=== PATIENT | female | born 1955 | race Caucasian/White ===

== ENCOUNTER → 2017-03-31 | Outpatient (CLI) | payer OTHER ==
[~2017-03-31] MED LIST: ASPI-557 PO; ESCI20TA22 PO; MULT-933 PO
== END ==
LOC: WC.BC 12:32
DX: Z12.31 Encounter for screening mammogram for malignant neoplasm of breast (principal)
CPT/HCPCS: 77063; G0202

== ENCOUNTER 2017-05-02 09:16 | Inpatient (IN) ==
[~2017-05-02 09:16] MED LIST changes: +ACETAMINOPHEN 500 MG TABLET PO ONE; -ASPI-557 PO; +CEFAZOLIN 1 G INJECTION IV ONE; +DEXAMETHASONE 4 MG/ML INJECTION IVP ONE; +EPINEPHrine 0.25 MG, BUPIVACAINE 0.25% PF 75 ML, MORPHINE SULFATE 15 MG, KETOROLAC INJ ... IJ ONE; -ESCI20TA22 PO; +FAMOTIDINE PREMIX 20 MG/50 ML BAG IV ONE; +LIDOCAINE 1% (10mg/ml) 10mL MDV SQ ONE; +MELOXICAM 15 MG TABLET PO ONE; +METOCLOPRAMIDE 10mg/2ml INJECTION IVP ONE; -MULT-933 PO; +NOZIN NASAL SWAB NAS ONE; +ONDANSETRON 4 MG/2 ML INJECTION IVP ONE; +SALINE FLUSH 10ml SYRINGE IVF PRN; +TRANEXAMIC ACID 1,000 MG in NS 100 ML IV ONE
[2017-05-02] MEDS: LR 1,000 ML IV SCH ×2 (10:12→14:14)
--- NOTE | 2017-05-02 11:17 | Anesthesia Preoperative Report ---
Anesthesia Preoperative Record - Date and Time Date: 05/02/17 Preoperative Diagnosis: Right knee degeneration NPO Since Date: 05/02/17 NPO Since Time: 00:00 Allergies/Adverse Reactions: Allergies Allergy/AdvReac Type Severity Reaction Status Date / Time erythromycin base AdvReac Intermediate VOMITING Verified 05/02/17 10:09 flu AdvReac Unknown Back Pain Uncoded 04/19/17 17:25 - Vital Signs Vital Signs: Temp Pulse Resp BP Pulse Ox 98.8 F 68 14 114/57 96 05/02/17 10:00 05/02/17 10:00 05/02/17 10:00 05/02/17 10:00 05/02/17 10:00 Height and Weight: Height 1.7 m Weight 83.9 kg Body Mass Index 29.0 - Medications Inpatient Medications: Current Medications Lactated Ringer's (Lactated Ringers) 1,000 mls @ 50 mls/hr IV .Q20H ROBERT Last Admin: 05/02/17 10:12 Dose: 50 mls/hr Sodium Chloride (Iv Flush) 10 - 80 ml IVF PRN PRN PRN Reason: Flushing Home Medications: Home Medications Medication Instructions Recorded Confirmed Type Escitalopram Oxalate [Lexapro] 20 mg PO DAILY #0 07/02/12 05/02/17 History Aspirin [Aspir 81] 1 tab PO DAILY #0 tab 03/23/16 05/01/17 History Cholecalciferol [Vitamin D-3] 2,000 unit PO DAILY 04/19/17 05/02/17 History Melatonin/Pyridoxine HCl (B6) 10 mg PO HS PRN 04/19/17 05/02/17 History [Melatonin 10 mg Tablet] Is Patient on Beta Leonie?: No Beta Leonie: No - Medical History Neuro/Musculoskeletal: Reports: Depression - Surgical History Musculoskeletal Surgery/Tx: Reports: Knee Arthroscopy (Lt and I&D Lt knee for infection), Total Knee Replacement (Lt), Other (Bunionectomy Rt) - Social History Smoking Status: Never smoker Hx Chewing Tobacco Use: No Second Hand Exposure: No Time spent discussing smoking cessation with patient: 3 to 10 minutes Alcohol Intake Frequency: does not drink - Pertinent Findings Laboratory: CBC and BMP 05/02/17 09:53 EKG Rhythm: Normal Sinus Rhythm - Physical Exam Respiratory Exam: Present: lungs clear Cardiovascular Exam: Present: regular rate and rhythm - Airway Assessment Mallampati Score: II TMD: 3 Fingerbreadths Neck Extension: fair Overall Assessment: no airway concerns - ASA ASA Score: 2 - Plan Regional/Trunk Block: Spinal - Discussion Discussion: Discussed risks/options/alternatives of anesthesia and questions answered. Patient consents. Nursing pain assessment noted. Attestation Statement: Prior to the delivery of any anesthetic medication, I examined the patient, developed the plan, obtained the patient's consent and discussed the risk and benefits of the procedure with the patient/guardian.
[2017-05-02] MEDS ORDERED: VANCOMYCIN 1,000 MG INJECTION ONE (11:51)
[2017-05-02] MEDS ORDERED: MIDAZOLAM 2mg/2ml INJECTION ONE (12:16)
[2017-05-02] MEDS ORDERED: PROPOFOL 1,000 MG/100 ML VIAL IV ONE (12:21)
[2017-05-02] MEDS ORDERED: EPHEDRINE 50mg/ml INJECTION ONE (12:44)
[2017-05-02] MEDS ORDERED: VANCOMYCIN 1,000 MG INJECTION IAR ONE (13:09)
[2017-05-02] MEDS ORDERED: METOPROLOL 5mg/5ml INJECTION IVP ONE (13:23)
[2017-05-02] MEDS ORDERED: PROPOFOL 60 ML ONE (13:38)
[2017-05-02] MEDS ORDERED: ONDANSETRON 4 MG/2 ML INJECTION IVP PRN ×2 (13:55→16:30)
[2017-05-02] MEDS ORDERED: HYDROMORPHONE 2 MG/ML INJECTION IVP PRN (13:55)
--- NOTE | 2017-05-02 14:06 | Operative Note ---
- Procedure Date of Admission: 05/02/17 Side: right Preoperative Diagnosis: knee primary DJD Postoperative Diagnosis: Same as preoperative diagnosis. Operation: Procedures Other incision with drainage of skin and subcutaneous tissue (07/02/12) Venous catheterization, not elsewhere classified (07/02/12) Operation: total knee arthroplasty (right) Surgeon: Modesto Tim MD Creative Project Manager: RONAN Bean Complications: None. Regional/Trunk Block: Spinal Peripheral Nerve Block: Saphenous-Right Estimated Blood Loss: See Anesthesia Record. Fluids: Please see Anesthesia Record. Description of Procedure: Mrs. Brasher and the right knee were identified and marked in the preoperative holding area. She was brought back to the operating suite and placed supine on the operating table. Spinal anesthetic was administered. The operative lower extremity was prepped and draped in a sterile fashion. Timeout was performed. She had a slight flexion contracture and a fixed varus deformity. An anterior midline incision followed by medial parapatellar arthrotomy was performed. The tourniquet was not used until cementing. Hemostasis was obtained with electrocautery. The patella was resurfaced to a size 32. A distal femoral osteotomy was then performed in 5 of valgus using intramedullary guide. The femur was sized at a 4 and rotation set using the epicondylar axis. Distal femoral cuts were performed with a 4-in-1 cutting block. A proximal tibial cut was then made perpendicular to its long axis using an extramedullary guide. At this point remaining meniscus and osteophytes were removed and joint cocktail was injected throughout soft tissue. Trial components were placed with a 9 mm spacer. This allowed for full extension but was tight in flexion this equalized after a large release of the PCL The patella tracked well. I then cut a [place] PS femur. The leg was then exsanguinated and the tourniquet inflated to 250 mmHg. The tibia was then stamped at a size 4 at the proper rotation. The bone was then prepared for cementing and [place] [employer] components were cemented into place and allowed to cure in extension. The tourniquet was then let down and hemostasis obtained with electrocautery. Betadine solution was used during the curing period for 3 minutes. A final 9 mm PS insert was placed. 1 g of vancomycin powder was placed into the joint before the capsulotomy was repaired with #1 Vicryl. I then left my promotions assistant sales marketing close the subcutaneous tissue and skin with 2-0 Vicryl and Monocryl. Dermabond was used on the skin. The drapes were then removed and she was taken to recovery room under the care of anesthesia. During the surgery she did have a cardiac arrhythmia with rapid change in her pulse was in sinus rhythm and hemodynamically stable. She'll be monitored closely with telemetry and the recovery room in cardiac consultation will be obtained.
--- NOTE | 2017-05-02 14:21 | History & Physical Update ---
- History and Physical Update Date: 05/02/17 Update: I evaluated this patient and found no changes in the history and clinical exam findings. The treatment plan and recommendations are also unchanged from the previous documentation.
[2017-05-02] MEDS ORDERED: ROPIVACAINE 0.5% (5mg/ml) 30ml INJ ONE (14:39)
--- NOTE | 2017-05-02 15:21 | XRay Report ---
Indication: postoperative image PROCEDURE: XR knee RT 2V: Encounter: Initial Comparison: None Findings: Postoperative changes of right total knee replacement are seen. There is expected postoperative subcutaneous gas. No evidence of hardware failure or acute fracture. No retained radiopaque surgical instruments or sponges. Overlying material causing artifact. Impression: New right total knee prosthesis without evidence of immediate complication. .
--- NOTE | 2017-05-02 15:24 | Anesthesia Procedure Note ---
Peripheral Nerve Blockade - Procedure Physician: Dakota Tim MD Date: 05/02/17 Surgical Procedure: Right Total Knee Discussion: Discussed risks/options/alternatives of anesthesia and questions answered. Patient consents. Nursing pain assessment noted. Block Start: 14:44 Block Stop: 14:49 Blocked Employed: Adductor Canal, Single Injection Indication: Post-Operative Pain Approach: Right Side Confirmed Position: Supine Patient: Consent, Risks/Benefits Discussed, Informed, Post Block Act. Discussed IV Sedation: No Initial Vital Signs: Temperature 98.8 F 05/02/17 10:00 Temperature Source Oral 05/02/17 10:00 Pulse Rate 68 05/02/17 10:00 Respiratory Rate 14 05/02/17 10:00 Blood Pressure 114/57 05/02/17 10:00 Blood Pressure Mean 76 05/02/17 10:00 Pulse Oximetry 96 05/02/17 10:00 Oxygen Delivery Method 05/02/17 10:00 Post Vital Signs: Temp Pulse Resp BP Pulse Ox 97.5 F 66 20 131/71 93 05/02/17 15:10 05/02/17 15:10 05/02/17 15:10 05/02/17 15:10 05/02/17 15:10 Initial Pain Pain Score: 0 Post Block Pain Score: 0 Prep: Chlorhexadine/ETOH Ultrasound Used?: Yes - Injectate Ropivacaine (%): 0.5 Ropivacaine (mL): 20 Was Epi 1:200,000 Used?: No Injection: Injection made incrementally with constant monitoring and aspiration every ml
--- NOTE | 2017-05-02 15:27 | Anesthesia Postoperative Note ---
- Date and Time Date: 05/02/17 Time: 15:25 - Status Patient Participated in Evaluation: Patient Participated in Person Vital Signs: Temp Pulse Resp BP Pulse Ox 97.5 F 66 20 131/71 93 05/02/17 15:10 05/02/17 15:10 05/02/17 15:10 05/02/17 15:10 05/02/17 15:10 Respiratory Function: Airway Patent Cardiovascular Function: Irregular Pulse (Cardiology Consult for Arrythmia intraoperative) EKG Rhythm: Sinus Bradycardia (With PAC's) Mental Status: Alert and Oriented Pain Intensity: 0 Hydration: IV Infusing Complications During Recover: None Apparent - Follow-Up Instructions Instructions: Per Surgeon
[2017-05-02] MEDS ORDERED: LORazepam 1 MG TABLET PO PRN (16:30)
[2017-05-02] MEDS ORDERED: DiphenhydrAMINE 25 MG CAPSULE PO PRN (16:30)
[2017-05-02] MEDS ORDERED: DiphenhydrAMINE 50 MG/ML INJECTION IVP PRN (16:30)
[2017-05-02] MEDS ORDERED: NOZIN NASAL SWAB NAS ONE (16:30)
[2017-05-02] MEDS ORDERED: NAPROXEN 220 MG TABLET PO PRN (16:30)
[2017-05-02] MEDS ORDERED: OXYCODONE IR 5 MG TABLET PO PRN (16:30)
[2017-05-02] MEDS: NS 1,000 ML IV SCH (16:37)
[2017-05-02] MEDS: ACETAMINOPHEN 325 MG TABLET PO SCH ×2 (16:38→21:18)
--- NOTE | 2017-05-02 16:49 | Cardiology Consult Note ---
History of Present Illness Consult date: 05/02/17 <Cora Gaspar 05/02/17 17:06> Requesting physician: Dakota Tim <Cora Gaspar 05/02/17 17:06> Consult reason: post-op evaluation (arrhythmia in OR) <Cora Gaspar 17:06> History of present illness: Verito is a 62 year old female patient of Dr. Dakota Tim who underwent total knee replacement today. While under anesthesia she had a rate change into the 120s and 130s. This was not a rhythm change as it remained sinus with PACs. Upon visiting with the patient, she reports having felt palpitations in the past, usually at night when laying in bed. She denies chest pain or pressure, dyspnea , dizziness or syncope. <Cora Gaspar 05/02/17 17:06> Review of Systems - Constitutional Constitutional: Absent: chills, fatigue, fever(s) <Cora Gaspar 05/02/17 17:06> - EENMT Eyes: Absent: change in vision <Cora Gaspar 05/02/17 17:06> Balance: Absent: vertigo <Cora Gaspar 05/02/17 17:06> Mouth/Throat: Absent: sore throat <Cora Gaspar 05/02/17 17:06> - Cardiovascular Cardiovascular: Present: palpitations (occasiona;). Absent: chest pain, syncope , dyspnea on exertion <Cora Gaspar 05/02/17 17:06> - Respiratory Respiratory: Absent: cough <Cora Gaspar 05/02/17 17:06> - Gastrointestinal Gastrointestinal: Absent: constipation, diarrhea, nausea, vomiting <Cora Gaspar 05/02/17 17:06> - Genitourinary Genitourinary: Absent: dysuria <Cora Gaspar 05/02/17 17:06> - Integumentary/Breasts Integumentary: Absent: rash <Cora Gaspar 05/02/17 17:06> - Neurological Neurological: Absent: dizziness <Cora Gaspar 05/02/17 17:06> [facility] Patient Stated Medical History Sleep Apnea No Anemia Yes Osteoarthritis Yes: generalized and cervical spine Other Infectious Yes: infection Lt knee after scope; 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 exc Anesthesia Reactions Yes: N/V-requesting patch Depression Yes Post Menopausal Yes Other Reproductive Yes: cervical polyp <Tee Conway - 05/04/17 13:28> Patient Stated Medical History Sleep Apnea No Anemia Yes Osteoarthritis Yes: generalized and cervical spine Other Infectious Yes: infection Lt knee after scope; 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 exc Anesthesia Reactions Yes: N/V-requesting patch Depression Yes Post Menopausal Yes Other Reproductive Yes: cervical polyp <Cora Gaspar - 05/02/17 17:06> Surgical History: Total knee replacement <Cora Gaspar - 05/02/17 17:06> Family History: Significant Family History of Cancer, multiple family members TIA- Mother Parkinsons- Father <Cora Gaspar - 05/02/17 17:06> - Social History Smoking status: Never smoker <Cora Gaspar - 05/02/17 17:06> Alcohol intake: current <Cora Gaspar - 05/02/17 17:06> Alcohol intake frequency: 0-2 drinks per day (wine) <Cora Gaspar - 17:06> Current occupational status: retired <Cora Gaspar - 05/02/17 17:06> Does patient use chewing tobacco?: No <Cora Gaspar - 05/02/17 17:06> Medications Home Medications Medication Instructions Recorded Confirmed Type Escitalopram Oxalate [Lexapro] 20 mg PO DAILY #0 07/02/12 05/02/17 History Cholecalciferol [Vitamin D-3] 2,000 unit PO DAILY 04/19/17 05/02/17 History Melatonin/Pyridoxine HCl (B6) 10 mg PO HS PRN 04/19/17 05/02/17 History [Melatonin 10 mg Tablet] <Tee Conway - 05/04/17 13:28> Allergies Allergy/AdvReac Type Severity Reaction Status Date / Time erythromycin base AdvReac Intermediate VOMITING Verified 05/02/17 10:09 flu AdvReac Unknown Back Pain Uncoded 04/19/17 17:25 <Tee Conway - 05/04/17 13:28> Exam Vital signs: Temp Pulse Resp BP Pulse Ox 97.1 F 60 16 121/74 97 05/03/17 12:00 05/03/17 12:00 05/03/17 12:00 05/03/17 12:00 05/03/17 12:00 <Tee Conway - 05/04/17 13:28> Temp Pulse Resp BP Pulse Ox 96.4 F L 92 16 131/69 92 05/02/17 15:25 05/02/17 16:10 05/02/17 15:25 05/02/17 16:10 05/02/17 16:10 <Cora Gaspar - 05/02/17 17:06> - Constitutional no acute distress, well nourished, cooperative <ChasityCora - 05/02/17 17: 06> - Routine HEENT Exam ENT: Present: mucous membranes moist <ChasityCora - 05/02/17 17:06> - Routine Neck Exam Absent: JVD, carotid bruit <ChasityCora hoang - 05/02/17 17:06> - Routine Chest/Breast/Axilla Exam Breast: Absent: tenderness <ChastiyCora - 05/02/17 17:06> - Routine Respiratory Exam Present: CTA bilaterally. Absent: rales, wheezes <ChasityCora - 05/02/17 17:06> - Routine Cardiovascular Exam Present: RRR. Absent: no murmur <ChasityCora - 05/02/17 17:06> - Routine Abdominal Exam Present: soft, normoactive bowel sounds <ChasityCora hoang - 05/02/17 17:06> - Routine Neurological Exam Present: alert, oriented X3 <ChasityCora - 05/02/17 17:06> - Routine Psychiatric Exam Present: normal affect, normal thought process <ChasityCora hoang - 05/02/17 17: 06> Results 05/03/17 04:13 05/03/17 04:13 <Tee Conway - 05/04/17 13:28> CBC 05/02/17 Range/Units 09:53 WBC 4.4 L (4.5-11.0) T/MM3 RBC 4.12 (4.00-5.20) M/MM3 Hgb 13.0 (12-16) GM/DL Hct 38.7 (36-46) % Plt Count 202 (130-400) T/MM3 Neut # 2.4 (1.8-7.7) T/MM3 Lymph # 1.3 (1-4.8) T/MM3 [place] # 0.4 (0-0.8) T/MM3 Eos # 0.2 (0-0.5) T/MM3 Baso # 0.0 (0-0.2) T/MM3 Intake and Output 05/02/17 05/02/17 05/02/17 06:59 14:59 22:59 Intake Total 1335.25 / 1335.25 319.167 / 319.167 Balance 1335.25 / 1335.25 319.167 / 319.167 Intake: IV 1335.25 / 1335.25 319.167 / 319.167 Adrenalin 0.25 mg 65.25 / 65.25 Marcaine 0.25% Pf 75 ml Morphine Sulfate 15 mg Toradol Inj 60 mg In Normal Saline 30 ml @ Per Protocol IJ INTRAOP ONE Rx#:[id number] PEPCID PREMIX 20 mg In 50 50 / 50 ml @ 100 mls/hr IV PREOP ONE Rx#:[id number] Lactated Ringers 1,000 ml 1000 / 1000 319.167 / 319.167 @ 50 mls/hr IV .Q20H ROBERT Rx#:[id number] Cyklokapron 1,000 mg In 220 / 220 Normal Saline 100 ml @ 660 mls/hr IV INTRAOP ONE Rx#:[id number] Other: Weight 184 lb 15.485 oz Patient Weight 05/03/17 06:59 Weight 184 lb 15.485 oz <Cora Gaspar - 05/02/17 17:06> - Imaging and Cardiology EKG results: image reviewed <Cora Gaspar - 05/02/17 17:06> Assessment and Plan (1) Sinus arrhythmia Status: Acute (2) Status post total knee replacement Problem details: continue ASA for DVT prevention. Follow up with Dr. Tim in 3 weeks. Status: Acute <Tee Conway - 05/04/17 13:28> (1) Sinus arrhythmia Status: Acute Check Electrolytes and TSH. Obtain Echo and chest X ray. Start low dose BB: Metoprolol 12.5mg by mouth BID (2) Status post total knee replacement Start date: 05/02/17 Status: Acute <Cora Gaspar - 05/02/17 16:45> Hospital Course Summary Disclaimer: The visit summary below is not to be considered part of the above Progress Note. <Tee Conway - 05/04/17 13:28> The visit summary below is not to be considered part of the above Progress Note. <Cora Gaspar - 05/02/17 17:06> Hospital Course: 05/04/17 13:28 Recommendation After examining the patient I agree with the above assessment. I am involved in the formulation of the patient's plan of care. <Tee Conway - 05/04/17 13:28> 05/02/17 Check Electrolytes and TSH. Obtain Echo and chest X ray. Start low dose BB: Metoprolol 12.5mg by mouth BID. <Cora Gaspar - 05/02/17 17:06> Sepsis Assessment - Focused Exam Vital Signs Temp Pulse Resp BP Pulse Ox 05/02/17 16:10 92 131/69 92 05/02/17 15:55 68 118/71 92 05/02/17 15:40 96 117/63 90 05/02/17 15:25 96.4 F L 63 16 131/74 92 05/02/17 15:14 97.5 F 05/02/17 15:10 97.5 F 66 20 131/71 93 05/02/17 15:05 66 18 121/70 95 05/02/17 15:00 59 L 18 110/58 94 05/02/17 14:55 74 18 106/58 92 05/02/17 14:50 61 19 112/59 98 05/02/17 14:45 92 18 107/55 90 05/02/17 14:40 100 20 118/71 96 05/02/17 14:35 102 H 16 112/59 96 05/02/17 14:32 97.6 F 103 H 16 119/68 92 05/02/17 10:00 98.8 F 63 14 114/57 96 <Cora Gaspar - 05/02/17 17:06>
[2017-05-02] MEDS: CEFAZOLIN 2 G in NS 100 ML IV SCH (21:17)
[2017-05-02] MEDS: DOCUSATE SODIUM 100 MG CAPSULE PO SCH (21:18)
[2017-05-02] MEDS: NOZIN NASAL SWAB NAS SCH (21:18)
[2017-05-02] MEDS: ASPIRIN *EC* 325 MG TABLET PO SCH (21:18)
[2017-05-02] MEDS ORDERED: SENNOSIDES 8.6 MG TABLET PO SCH (22:00)
[2017-05-03] MEDS: NS 1,000 ML IV SCH (04:18)
[2017-05-03] MEDS: CEFAZOLIN 2 G in NS 100 ML IV SCH (04:19)
[2017-05-03] MEDS: NOZIN NASAL SWAB NAS SCH (06:21)
--- NOTE | 2017-05-03 07:22 | Orthopedic Progress Note ---
Date: Subjective/Severity of Illness: Verito is doing very well. Pain is controlled and she has been mobile with good tolerance. Denies any palpitations, racing HR or CP. No resp complaints. Denies other problems. Orthopedic Objective Vital signs: Temp Pulse Resp BP Pulse Ox 97.3 F 58 L 20 136/76 94 05/03/17 04:00 05/03/17 04:00 05/03/17 04:00 05/03/17 04:00 05/03/17 04:00 Height and Weight: Height 5 ft 7 in Weight 184 lb 15.485 oz Body Mass Index 29.0 - Constitutional General Appearance: Present: alert, no acute distress - Respiratory Exam Present: non-labored - Neurological Exam Present: no deficits - Psychiatric Exam Present: alert, normal affect - Wound Management Right Knee Dressing Status: Dry & Intact Primary Dressing: Mepilex - Labs Result Diagrams: 05/03/17 04:13 05/03/17 04:13 Abnormal lab results 05/02/17 05/02/17 05/03/17 Range/Units 09:53 09:53 04:13 WBC 4.4 L (4.5-11.0) T/MM3 RBC 3.59 L (4.00-5.20) M/MM3 Hgb 11.2 L D (12-16) GM/DL Hct 33.9 L D (36-46) % Eos % (Auto) 4.4 H (0-4) % Creatinine 0.6 L (0.7-1.2) MG/DL BUN/Creatinine Ratio 28 H (6-26) RATIO 05/03/17 Range/Units 04:13 WBC (4.5-11.0) T/MM3 RBC (4.00-5.20) M/MM3 Hgb (12-16) GM/DL Hct (36-46) % Eos % (Auto) (0-4) % Creatinine 0.6 L (0.7-1.2) MG/DL BUN/Creatinine Ratio (6-26) RATIO H & H 05/02/17 05/03/17 Range/Units 09:53 04:13 Hgb 13.0 11.2 L D (12-16) GM/DL Hct 38.7 33.9 L D (36-46) % Orthopedic Assessment and Plan (1) Status post total knee replacement Status: Acute Qualifiers: Laterality: right Qualified Code(s): Z96.651 - Presence of right artificial knee joint Assessment and Plan: Mobilize with PT / OT. Aspirin x 6 weeks for DVT coverage. SCDs for additional DVT coverage. B-Leonie added for palpitations. Cardiology consult reviewed. CM for discharge planning. F/U in [address] Tim. (2) Sinus arrhythmia Status: Acute Hospital Course Summary Disclaimer: The visit summary below is not to be considered part of the above Progress Note. Hospital Course: 05/02/17 Check Electrolytes and TSH. Obtain Echo and chest X ray. Start low dose BB: Metoprolol 12.5mg by mouth BID.
--- NOTE | 2017-05-03 08:12 | XRay Report ---
Indication: arrhythmia PROCEDURE: XR chest 1V: Encounter: Initial Comparison: July 04, 2012 FINDINGS: The lungs are clear. There is no abnormal airspace opacity, pleural effusion or pneumothorax identified. The heart size, pulmonary vasculature and mediastinum are within normal limits. No significant skeletal abnormality is seen. IMPRESSION: No acute cardiopulmonary abnormality. .
[2017-05-03] MEDS: DOCUSATE SODIUM 100 MG CAPSULE PO SCH (08:58)
[2017-05-03] MEDS: ACETAMINOPHEN 325 MG TABLET PO SCH ×2 (08:58→13:08)
[2017-05-03] MEDS: ASPIRIN *EC* 325 MG TABLET PO SCH (08:58)
[2017-05-03] MEDS ORDERED: POLYETHYL GLYCOL 3350 17gm PACKET PO SCH (09:00)
--- NOTE | 2017-05-03 13:27 | Discharge Summary ---
Orthopedic Discharge Info Date of admission: 05/02/17 09:16 Primary care physician: Pawel Riley MD Attending Physician: Dakota Tim MD Consults: 05/02/17 07:43 Consult to Anesthesiology [CONS] Routine Consulting Provider: RONAN Morgan Reason For Exam: Preoperative Assessment 05/02/17 14:25 Physician [Physician Consult] [CONS] Routine Consulting Provider: Tee Conway Reason For Exam: Irreg HR Ordering Provider has Notified Commercial Trailer Truck Driver: Reena 05/02/17 16:30 Case Management Consult [CONS] Routine Reason For Exam: Discharge Planning DME-Walker [CONS] Routine Height: 5 ft 7 in Weight: 184 lb 15.485 oz Comment: change dressing in 2 weeks Total Joint Outpatient Therapy [CONS] Routine Comment: change dressing in 2 weeks - Discharge Diagnosis (1) Sinus arrhythmia Status: Acute (2) Status post total knee replacement Qualifiers: Laterality: right Qualified Code(s): Z96.651 - Presence of right artificial knee joint Status: Acute - Procedures Procedures: Procedures RTKA - Laboratory Result Diagrams: 05/03/17 04:13 05/03/17 04:13 Laboratory: Abnormal lab results 05/02/17 05/03/17 05/03/17 Range/Units 09:53 04:13 04:13 RBC 3.59 L (4.00-5.20) M/MM3 Hgb 11.2 L D (12-16) GM/DL Hct 33.9 L D (36-46) % Creatinine 0.6 L 0.6 L (0.7-1.2) MG/DL BUN/Creatinine Ratio 28 H (6-26) RATIO H & H 05/02/17 05/03/17 Range/Units 09:53 04:13 Hgb 13.0 11.2 L D (12-16) GM/DL Hct 38.7 33.9 L D (36-46) % Orthopedic Discharge HPI - HPI Comments This patient was admitted for elective surgical tx of end stage degenerative joint disease that failed to respond to conservative treatment. Further details of this is found in the admission H&P. Orthopedic Hospital Course Hospital course: 05/03/17 13:25 After appropriate preoperative clearance and signing of operative consent, the patient was given IV antibiotics, according to orthopedic protocol. The patient was taken to the operating room and underwent elective joint arthroplasty. Following surgery, antibiotics were discontinued less than 24 hours according to joint protocol. Appropriate anticoagulants were initiated and SCDs added for DVT prevention. The dressing was clean, dry, and intact. Pain control was obtained via multimodal approach. Bowel motivation addressed with scheduled and PRN medications. Early mobilization was initiated through PT services. Discharge arrangements made by a collaborative effort between the patient and Case Management. Follow-up is scheduled in 2-3 weeks. Discharge instructions given by orthopedic providers and nursing staff at discharge. Discharge condition was good. Ongoing care required?: No Comments: Follow up with cardiology within 1 week for further follow up on your Metoprolol - Postoperative Anemia patient received IVF, labs monitored daily, no intervention required, HGB drop- acceptable Discharge Plan - Med Rec/Dispo Referrals/Follow Up: Tee Conway MD [Physician] - 1 Week (within a week to follow Metoprolol and rhythum ) Dipti Instructions: [facility] [place] Ortho Postop Instructions Additional Instructions: [facility] ON 05/08/2017 AT 4:00PM FOR PHYSICAL THERAPY EVAL WITH NAOMY RIVAS. PLEASE COMPLETE THE PAPERWORK IN THE [facility] [place] FOLDER PRIOR TO THE APPOINTMENT. PHONE [phone] Prescriptions: New Acetaminophen [Tylenol] 650 mg PO QID #100 Aspirin *EC* [Ecotrin] 325 mg PO BID #84 Metoprolol Tartrate [Lopressor] 12.5 mg PO BID #14 Oxycodone *Ir* [Roxicodone *Ir*] 5 - 15 mg PO Q3H PRN #60 PRN Reason: Breakthrough Pain Continue Melatonin/Pyridoxine HCl (B6) [Melatonin 10 mg Tablet] 10 mg PO HS PRN PRN Reason: insomnia Escitalopram Oxalate [Lexapro] 20 mg PO DAILY #0 Cholecalciferol [Vitamin D-3] 2,000 unit PO DAILY Discontinued Aspirin [Aspir 81] 1 tab PO DAILY #0 tab - Disposition 01 Discharged Home, Self-Care
--- NOTE | 2017-05-03 13:36 | Orthopedic Progress Note ---
Date: Subjective/Severity of Illness: Discharge was pending Cardiology's recommendation on her rhythm. Per DEVIN Hernandez with Dr. Conway it is okay to "go home with a beta barrie. Echo is done and essentially normal. Orthopedic Objective Vital signs: Temp Pulse Resp BP Pulse Ox 97.1 F 60 16 121/74 97 05/03/17 12:00 05/03/17 12:00 05/03/17 12:00 05/03/17 12:00 05/03/17 12:00 Height and Weight: Height 5 ft 7 in Weight 191 lb 2.252 oz Body Mass Index 29.0 - Constitutional General Appearance: Present: alert, orientated x3, no acute distress - Respiratory Exam Present: non-labored - Cardiovascular Exam Present: pedal pulses intact Capillary Refill: < 2-3 Seconds - Abdominal Exam Present: soft - Extremities Exam Present: pulses intact, joint swelling - Integumentary Exam Present: pink, warm, dry, intact - Neurological Exam Present: intact to light touch - Psychiatric Exam Present: alert, oriented, normal affect - Wound Management Right Knee Dressing Status: Dry & Intact Primary Dressing: Mepilex - Labs Result Diagrams: 05/03/17 04:13 05/03/17 04:13 Abnormal lab results 05/02/17 05/03/17 05/03/17 Range/Units 09:53 04:13 04:13 RBC 3.59 L (4.00-5.20) M/MM3 Hgb 11.2 L D (12-16) GM/DL Hct 33.9 L D (36-46) % Creatinine 0.6 L 0.6 L (0.7-1.2) MG/DL BUN/Creatinine Ratio 28 H (6-26) RATIO H & H 05/02/17 05/03/17 Range/Units 09:53 04:13 Hgb 13.0 11.2 L D (12-16) GM/DL Hct 38.7 33.9 L D (36-46) % Orthopedic Assessment and Plan (1) Status post total knee replacement Status: Acute Qualifiers: Laterality: right Qualified Code(s): Z96.651 - Presence of right artificial knee joint Problem Details: continue ASA for DVT prevention. Follow up with Dr. Tim in 3 weeks. (2) Sinus arrhythmia Status: Acute Assessment and Plan: continue Metoprolol 12.5mg PO BID and follow up with Cardiology. Hospital Course Summary Disclaimer: The visit summary below is not to be considered part of the above Progress Note. Hospital Course: 05/02/17 Check Electrolytes and TSH. Obtain Echo and chest X ray. Start low dose BB: Metoprolol 12.5mg by mouth BID.
[2017-05-03] MEDS ORDERED: SENNOSIDES 8.6 MG TABLET PO PRN (14:21)
--- NOTE | 2017-05-03 19:37 | Echocardiogram ---
DATE OF PROCEDURE 05/02/[address] [place] Tim INDICATION This is a two-dimensional echo with spectral Doppler, color-flow, and M-mode. It was obtained in a patient with arrhythmias. DESCRIPTION OF PROCEDURE Left atrial dimension is normal. Left ventricular end-diastolic dimension is normal. Left ventricular wall thickness is at the upper limits of normal. LV systolic function is normal with ejection fraction of 67%. Right atrium is normal. Right ventricle is normal. Aortic root dimension is normal. Mitral valve is morphologically normal with mild mitral regurgitation. Aortic valve is a trileaflet structure with no stenosis. Mild aortic insufficiency is present. Tricuspid valve shows mild tricuspid regurgitation with normal estimated pulmonary artery systolic pressure of 25. Pulmonary valve shows no pulmonary insufficiency. There is no pericardial effusion. IMPRESSION 1. Normal LV systolic function with ejection fraction of 67%. 2. Mild mitral regurgitation. 3. Mild aortic insufficiency. 4. Mild tricuspid regurgitation with normal estimated pulmonary artery systolic pressure of 25. MTDD
[2017-05-04] MEDS ORDERED: BISACODYL 10 MG SUPPOSITORY RECTALLY SCH (20:00)
== END 2017-05-03 14:10 | disposition home or self-care (01) | DRG 470 ==
LOC: SRG 09:16
PROVIDERS: ADMIT Orthopaedic Surgery; ATTEND Orthopaedic Surgery